=== PATIENT | female | born 1955 | race Caucasian/White ===

== ENCOUNTER 2024-02-22 08:37 | Day surgery (SDC) | payer BC, MEDICARE ==
[2024-02-15 12:02] VITALS: BMI 31.1
[~2024-02-22 08:37] MED LIST: HYDROmorphone 0.5 MG/0.5 ML SYRINGE IVP PRN; TRANEXAMIC 1,000 MG/100ML-NACL 1,000 MG in SALINE 1 100ML.BAG IV PRN; TRANEXAMIC 1,000 MG/100ML-NACL 1,000 MG in SALINE 1 100ML.BAG IVPB PRN
[2024-02-22] MEDS: oxyCODONE ER 10 MG TAB.ER.12H PO PRN (09:22)
[2024-02-22] MEDS: LACTATED RINGERS 1,000 ML IV SCH (09:22)
[2024-02-22] MEDS: ACETAMINOPHEN TAB 500 MG TAB PO PRN (09:23)
[2024-02-22] MEDS: KETOROLAC 15 MG/ML 1 ML VIAL IVP PRN (09:23)
[2024-02-22] MEDS: ONDANSETRON 4 MG/2 ML VIAL IVP PRN ×2 (09:24→16:35)
[2024-02-22] MEDS: DEXAMETHASONE SOD PHOSPHATE 10 MG/ML 1 ML VIAL IV PRN (09:24)
[2024-02-22] MEDS: FAMOTIDINE 20 MG/2 ML VIAL IVP PRN (09:24)
[2024-02-22] MEDS: DOCUSATE 100 MG CAP PO PRN (09:28)
[2024-02-22] MEDS: IV FLUID CONTINUATION 1,000 ML IV ONE (09:30)
[2024-02-22] MEDS: MIDAZOLAM 2 MG/2 ML VIAL IV PRN (09:55)
--- NOTE | 2024-02-22 10:19 | P.ANPRN ---
Procedure Note - Anesthesia - Nerve Block Performed Left Adductor Canal Single Time Out Performed: Yes Date of Procedure: 02/22/24 Procedure Start Time: 09:55 Procedure Stop Time: 10:00 Location of Patient: PreOp Indication: Acute Post-Operative Pain, Requested by Surgeon Sedation Type: Sedate with meaningful contact maintained Preparation: Sterile Prep, Sterile Dressing Position: Supine Catheter: None Needle Types: Facet Needle Gauge: 20 Ultrasound used to visualize needle placement: Yes Ultrasound used to observe medication spread: Yes Injectate: 0.5% Ropivacaine (see comment for volume) (20 ml + decadron 3 mg) Blood Aspirated: No Pain Paresthesia on Injection Noted: No Resistance on Injection: Normal Image Stored and Saved: Yes Events: Uneventful and Well Tolerated Left iPack Single Time Out Performed: Yes Date of Procedure: 02/22/24 Procedure Start Time: 10:06 Procedure Stop Time: 10:10 Location of Patient: PreOp Indication: Acute Post-Operative Pain, Requested by Surgeon Sedation Type: Sedate with meaningful contact maintained Preparation: Sterile Prep, Sterile Dressing Position: Right Lateral Catheter: None Needle Types: Facet Needle Gauge: 20 Ultrasound used to visualize needle placement: Yes Ultrasound used to observe medication spread: Yes Injectate: 0.5% Ropivacaine (see comment for volume) (10 ml + decadron 1 mg) Blood Aspirated: No Pain Paresthesia on Injection Noted: No Resistance on Injection: Normal Image Stored and Saved: Yes Events: Uneventful and Well Tolerated
[2024-02-22] MEDS ORDERED: ROPIVACAINE 5 MG/ML 30 ML VIAL ONE (11:04)
[2024-02-22] MEDS ORDERED: ROCURONIUM 10 MG/ML (5 ML VIAL) IV ONE (11:04)
[2024-02-22] MEDS ORDERED: MIDAZOLAM 2 MG/2 ML VIAL ONE (11:04)
[2024-02-22] MEDS ORDERED: TRANEXAMIC 1,000 MG/100ML-NACL PREMIX BAG ONE (11:04)
[2024-02-22] MEDS ORDERED: PROPOFOL 10 MG/ML 20 ML VIAL IV ONE (11:04)
[2024-02-22] MEDS ORDERED: DEXAMETHASONE SOD PHOSPHATE 4 MG/ML 1 ML VIAL ONE (11:04)
[2024-02-22] MEDS ORDERED: ePHEDrine 50 MG/ML 1 ML VIAL ONE (11:04)
[2024-02-22] MEDS ORDERED: LIDOCAINE 1% INJ 10MG/ML (20 ML MDV) ONE (11:04)
[2024-02-22] MEDS ORDERED: GLYCOPYRROLATE 0.2 MG/ML 2 ML VIAL ONE (11:04)
[2024-02-22] MEDS ORDERED: SUCCINYLCHOLINE CHLORIDE 200 MG/10 ML VIAL IV ONE (11:04)
[2024-02-22] MEDS ORDERED: NEOSTIGMINE 1 MG/ML 10 ML VIAL ONE (11:04)
[2024-02-22] MEDS ORDERED: HYDROmorphone (PF) 1 MG/ML ONE (11:04)
[2024-02-22] MEDS ORDERED: fentaNYL (PF) 50 MCG/ML 2 ML AMP ONE (11:04)
[2024-02-22] MEDS: LACTATED RINGERS 1,000 ML IV ONE (11:39)
[2024-02-22] MEDS: ROPIVACAINE/EPI/CLONIDINE/KET 50 ML SYRINGE MISCELLANE PRN (11:41)
--- NOTE | 2024-02-22 13:35 | P.OP ---
Date of Procedure: 02/22/24 Preoperative Diagnosis: 1. severe left knee arthritis, status post ACL reconstruction 2. 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 Former cigarette smoker Postoperative Diagnosis: Same Procedure(s) Performed: 1. Left total knee arthroplasty 2. Computer assisted musculoskeletal navigation using CT/MRI images Implants: 1. [place] [employer] CR Femur Size #3 2. [employer] [employer] [place] Tibial Base Size #2 with 12x50 stem 3. John [employer]lon CS poly Size #11 4. [place] [employer]lon all poly patella, Size #29 Anesthesia: GETA, regional Surgeon: David Washington Cashier Courtesy Booth #1: John Alvarez Estimated Blood Loss (ml): 100 IV fluids (ml): 800 Pathology: none sent Condition: stable Disposition: PACU Indications for Procedure: I met with the patient preoperatively in the office setting and discussed treatment of their symptomatic knee arthritis. They failed a long course of nonsurgical treatment and elected to proceed with an elective total knee replacement. I discussed the potential risks and complications at length and gave them ample time to ask questions. Risks discussed included: risks from anesthesia, superficial site surgical infection, acute and/or chronic periprosthetic joint infection, delayed wound healing, drainage, wound necrosis, instability, stiffness, stiffness requiring manipulation and/or revision surgery, damage to local blood vessels or nerves, aseptic loosening of the implants, extensor mechanism issues including disruption, patellar maltracking, avascular necrosis etc., continued or worsened knee pain, generalized dissatisfaction with surgical outcome, need for revision surgery, an inability to regain preinjury level of function, DVT, PE, other medical complications, and possibly loss of life or limb. The patient voiced their understanding that while these are the most common complications other less common complications are possible. They provided both their verbal and written consent to go forward with surgery. The patient also has a history of smoking. She was able to quit smoking prior to surgery. She states that she has not had a cigarette in over a month. She understands that if she resumes smoking she is at increased risk of having an infection or delayed wound healing. Operative Findings: patient had severe tricompartmental osteoarthritis. After registering the knee with the Tahir robot there was a 20 flexion contracture. Description of Procedure: The patient was identified in preoperative holding and the correct operative extremity was verified and marked with a marker. I reviewed the consent form with the patient at length. All of their questions were answered. The patient was given a block by anesthesia. They were then brought back to the operating room. They were transferred onto the operating room table where a general anesthetic, preoperative antibiotics, and tranexamic acid were administered by anesthesia. A tourniquet was applied to the proximal aspect of the operative extremity. The contralateral extremity was padded under the heel and secured to the operating room table with a nonsterile blue towel and tape. The ipsilateral arm was carefully draped across the patient's chest and secured with a pillow and foam. A post was applied over the lateral aspect of the ipsilateral thigh and a bolster was placed under the ipsilateral foot. I verified that the operative extremity was stable and the knee was flexed to 90. The operative extremity was then placed in a leg acuna, nonsterile drapes were applied, and the extremity was prepped and draped sterilely in the standard sterile fashion. Prior to starting surgery timeout was performed identifying the correct patient, operative extremity, and procedure. The leg was then elevated, exsanguinated with an Esmarch bandage, and the tourniquet was inflated. An anterior midline incision was made sharply with a scalpel. Once I had dissected deep to the superficial fascial layer medial and lateral flaps were elevated. A medial parapatellar arthrotomy was created. Upon opening the knee joint there were diffuse arthritic changes in all 3 compartments. The anterior horn of the medial meniscus were sharply released and a medial release was performed around the posterior medial corner of the knee to facilitate retractor placement. after performing the medial release the metallic interference screw in the tibia was identified. I carefully removed bone around the screw and then was able to easily remove the screw. The screw tract was debrided and bone wax was applied to prevent extravasation of cement. The fat pad was excised with electrocautery. The patella was found to be severely arthritic and a provisional cut was made with a sagittal saw to facilitate mobilization of the extensor mechanism during the procedure. Remnants of the ACL and PCL were then excised from the notch. 4 mm pins were then placed within the incision in the medial distal femur and proximal tibia. Arrays were applied to the pins and I verified they were completely tightened. The knee was then registered with the deeplocal robot and manipulations in implant position were made to balance the knee and opitmize implant position. Using the Tahir robotic saw all cuts were made in accordance with our plan. After all bony fragments had been removed the cuts were verified with the planar probe. The tibia was then subluxed forward and sized. The knee was brought into flexion and a lamina ladderman was placed to allow removal of the meniscal remnants both medially and laterally as well as posterior osteophytes. Local anesthetic was then infiltrated around the joint capsule. Trial implants were then placed within the knee. Range of motion and collateral ligament tension was then evaluated. Adjustments in implant size and position were then made accordingly. Once the knee was felt to be appropriately balanced the Tahir pins were removed. The patella was then recut, sized, and punched. A trial patellar button was then placed. With the trial components in place, the patella tracked midline. The femur was then drilled and the trial component removed. The trial tibial component was then appropriately rotated, pinned, and prepared for the keel. All trial components were then removed from the knee. The knee was thoroughly irrigated with pulsatile lavage. Cement was prepared via vacuum mixing in a bowl on the back table. I then hand pressurized cement into the femur and tibia and placed the implants beginning with the tibial base tray and poly liner, femoral component, and finally the patellar button. All extruded cement was removed including from the pin sites. Once the cement had hardened the knee was evaluated one final time with the final polyethylene liner in place. The knee had full extension and flexion and felt stable to varus and valgus stress throughout the arc of motion. The tourniquet was released and with the tourniquet down the patella tracked midline. All bleeders were controlled with electrocautery. The knee was then soaked for 3 minutes with a dilute Betadine soak. The knee was thoroughly irrigated using 3 L of sterile saline and pulsatile lavage. The extensor mechanism was then reapproximated using pop off Vicryl sutures followed by a running barbed suture. The knee was then closed in layers with a 0 strata fix for the deep fascial l maria luz, 2-0 strata fix for the superficial subcutaneous layer and Monocryl and Steri-Strips for the skin. A sterile dressing was applied. I verified that all instrument, sponge, and sharp counts were correct. The patient was then transferred off the operating room table, extubated, and brought to recovery having tolerated the procedure well. John Alvarez PA-C was required as a skilled practice assistant for patient positioning, draping, exposure, retraction, closure of wound and application of dressing PLAN: The patient can weight-bear as tolerated on the operative extremity. DVT prophylaxis with aspirin 81 mg twice a day based on preoperative risk stratification. Internal medicine for perioperative medical management. 2 doses of post-operative antibiotics. Physical therapy for gait training. Follow-up in the office in 2 weeks for wound check and x-rays of the knee including an AP and lateral.
[2024-02-22] MEDS ORDERED: MAGNESIUM HYDROXIDE 2,400 MG/30 ML CUP PO PRN (13:42)
[2024-02-22] MEDS ORDERED: NA PHOS,M-B/NA PHOS,DI-BA 133 ML ENEMA RECTAL PRN (13:42)
[2024-02-22] MEDS ORDERED: HYDROmorphone 0.5 MG/0.5 ML SYRINGE IVP PRN ×3 (13:42)
[2024-02-22] MEDS ORDERED: bisacodyL 10 MG SUPP RECTAL PRN (13:42)
[2024-02-22] MEDS ORDERED: HYDROcodone/APAP 10-325MG 1 EACH TAB PO PRN (13:42)
[2024-02-22] MEDS ORDERED: hydrOXYzine pamoate 25 MG CAP PO PRN (13:42)
[2024-02-22] MEDS ORDERED: NALOXONE 0.4 MG/ML 1 ML VIAL IV PRN (13:42)
--- NOTE | 2024-02-22 14:29 | XR ---
EXAMINATION TYPE: XR knee limited LT DATE OF EXAM: 02/22/2024 COMPARISON: None HISTORY: Postknee replacement TECHNIQUE: 2 view left knee FINDINGS: Tibial femoral components in place. Postsurgical soft tissue changes are present. No acute fractures are evident post revision. IMPRESSION: 1. No acute fractures post left knee revision and replacement [facility] Jalil Mayen, Workstation: [facility], 02/22/2024 2:27 PM
--- NOTE | 2024-02-22 17:28 | P.CONS ---
History of Present Illness - Reason for Consult Consult date: 02/22/24 Medical Management Requesting physician: aDvid Washington - History of Present Illness History of Presenting Illness: Patient is a very pleasant 68-year-old female with a past medical history of hypertension, hyperlipidemia, and arthritis. She is currently admitted under orthopedic surgery team status post elective left total knee arthroplasty. We w lizet consulted for medical management throughout hospitalization. Patient seen and fully evaluated upon arrival to room 484. She was resting comfortably complaining of some mild postoperative nausea and feeling sleepy. She is also very concerned that she missed her chlorthalidone this morning and requesting her home medication at this time. Patient otherwise denies any complaints at this time. She reports minimal postoperative pain rating 2 out of 10 at this time. Patient denies having any headache, lightheadedness, dizziness, chest pain, palpitations, shortness of breath, or any other co mplaints at this time. Review of systems: Pertinent positives and negatives as discussed in HPI, a complete review of systems was performed and all other systems are negative. Physical exam: Vital signs reviewed and stable. General: Nontoxic, no distress and appears stated age. Derm: Skin warm and dry, normal coloration for ethnicity. Head: Atraumatic, normocephalic and symmetric. Eyes: EOM's intact, no lid lag, and anicteric sclera Mouth: no lip lesions, mucus membranes moist Cardiovascular: regular rate and rhythm with normal S1S2, no murmur, positive posterior tibial pulses bilaterally, and cap refill < 2 seconds. Lungs: Respirations even, regular, and unlabored on room air. Lungs CTA bilater ally, no rhonchi, no rales, no wheezing, and no accessory muscle usage. Abdominal: soft, nontender to palpation, no guarding, no appreciable organomegaly Ext: Movement and sensation intact. No gross muscle atrophy, no edema, no contractures. Neuro: Speech clear, face symmetrical and CN II-XII grossly intact with no noted focal neuro deficits Psych: Alert and oriented to person, place, time, and situation. Appropriate and pleasant affect. Assessment and Plan of Care: Status post left total knee arthroplasty Management per primary admitting orthopedic surgery team including DVT prophylaxis, pain management, wound/dressing management, weightbearing, and PT/OT. Currently DVT prophylaxis with aspirin 81 mg twice daily. Postoperative nausea Patient was given Zofran and continues to report postoperative nausea. Will place order for Compazine 10 mg IVP every 6 hours for intractable nausea. Hypertension Blood pressure currently stable at 135/63 with heart rate of 91. Patient to resume chlorthalidone 25 mg daily. Data and imaging reviewed: Reviewed operative report. Vital signs reviewed and stable with blood pressure 135/63, heart rate 91, respiratory rate 18, and SpO2 of 96% on 3 L. Preoperative EKG reviewed showing normal sinus rhythm at 68 bpm with no noted T wave or ST abnormality showing no signs of acute ischemia upon personal review and interpretation. Thank you for allowing us to participate in the care of this pleasant patient. Do not hesitate to contact us with questions. Someone can be reached from the [facility][Note 3] hospitalist group all hours of the day at [phone] or via [employer]. Patient was seen independently by Nurse Practitioner. This document was prepared using NOTIK dictation software. Please allow for errors in ecological technical officer while rare they do occur. I reviewed the documentation as provided by the MACIEL above, who is the original author of this note. I agree with the documented assessment and plan, with the following changes: none Past Medical History Past Medical History: Hyperlipidemia, Hypertension, Osteoarthritis (OA) Additional Past Medical History / Comment(s): Varicose veins. History of Any Multi-Drug Resistant Organisms: None Reported Past Surgical History: Orthopedic Surgery, Tonsillectomy Additional Past Surgical History / Comment(s): Reconstructive left knee surgery, ovary removed(cannot recall which one). Past Anesthesia/Blood Transfusion Reactions: No Reported Reaction Smoking Status: Former smoker - Past Family History Mother Family Medical History: Cancer Additional Family Medical History / Comment(s): Multiple myeloma. Medications and Allergies Home Medications Medication Instructions Recorded Confirmed Type Chlorthalidone 25 mg PO DAILY 02/15/24 02/22/24 History Ergocalciferol [Vitamin D2 (1250 1,250 mcg PO SA 02/15/24 02/22/24 History Mcg = 28096 Iu)] Niacin 500 mg PO DAILY 02/15/24 02/22/24 History Allergies Allergy/AdvReac Type Severity Reaction Status Date / Time povidone-iodine Allergy Rash/Hives Verified 02/22/24 08:59 [From Betadine] Physical Exam Osteopathic Statement: *. No significant issues noted on an osteopathic structural exam other than those noted in the History and Physical/Consult. Vitals: Vital Signs Temp Pulse Resp BP Pulse Ox 02/22/24 16:00 91 18 135/63 96 02/22/24 15:45 88 18 137/63 96 02/22/24 15:31 92 18 141/59 94 L 02/22/24 15:15 90 18 156/71 95 02/22/24 15:00 96 18 154/71 95 02/22/24 14:45 91 18 156/70 95 02/22/24 14:30 91 18 130/61 95 02/22/24 14:15 91 18 176/63 95 02/22/24 14:00 96 18 164/76 95 02/22/24 13:45 97.7 F 111 H 18 181/88 95 02/22/24 10:10 64 16 102/53 97 02/22/24 09:00 97.1 F L 80 18 142/82 97 Intake and Output 02/22/24 02/22/24 02/22/24 06:59 14:59 22:59 Intake Total 1850 Output Total 100 Balance 1750 Intake: IV 1850 Output: Estimated Blood Loss 100 Other: Weight 85.6 kg Results CBC & Chem 7: 02/22/24 09:19
[2024-02-22] MEDS ORDERED: PROCHLORPERAZINE INJ 10 MG/2 ML VIAL IVP PRN (17:41)
[2024-02-22] MEDS: CHLORTHALIDONE 25 MG TAB PO SCH (18:46)
[2024-02-22] MEDS: SODIUM CHLORIDE 0.9% 1,000 ML IV SCH (18:51)
[2024-02-22] MEDS: SENNOSIDES-DOCUSATE SODIUM 1 EACH TAB PO SCH (21:56)
[2024-02-22] MEDS: ASPIRIN 81 MG PO SCH (21:56)
[2024-02-23 08:33] VITALS: BP 104/61; PULSE 94; RESP 17; TEMP 98.3
--- NOTE | 2024-02-23 08:44 | P.DS ---
Providers Date of admission: 02/22/2024 Attending physician: David Washington Consults: 02/22/24 13:42 Consult Physician Routine Consulting Provider: Leydi Griggs Consult Reason/Comments: post op Left TKA medical management Do you want consulting provider notified?: Yes Primary care physician: [facility] Course: the patient is a very pleasant 68-year-old female who was admitted under my care yesterday and had a total knee replacement. Following an uncomplicated surgery she was transferred to the orthopedic floor. She received 2 doses of postoperative antibiotics. She was transitioned from IV to oral pain medication. She was seen by internal medicine. On postoperative day #1 she was evaluated by myself. Her knee looked good. Her dressing was intact. There is minimal swelling. She was able to perform a straight leg raise. Femoral nerve function was intact. She was able to actively plantarflex and dorsiflex her ankle and her foot. She worked with physical therapy. Burt new did well and was cleared for discharge home. Plan - Discharge Summary Discharge Rx Participant: No New Discharge Prescriptions: New Aspirin 81 mg PO BID #60 tab Docusate [Colace] 100 mg PO BID #60 capsule HYDROcodone/APAP 5-325MG [[place] 5-325] 1 - 2 tab PO Q6HR PRN #56 tab PRN Reason: Pain Ondansetron [Zofran] 4 mg PO Q8HR PRN #20 tab PRN Reason: Nausea Diclofenac Sodium [Voltaren] 75 mg PO BID #60 tab Omeprazole [PriLOSEC] 40 mg PO DAILY #30 cap No Action Ergocalciferol [Vitamin D2 (1250 Mcg = 60723 Iu)] 1,250 mcg PO SA Niacin 500 mg PO DAILY Chlorthalidone 25 mg PO DAILY Discharge Medication List Chlorthalidone 25 mg PO DAILY 02/15/24 [History] Ergocalciferol [Vitamin D2 (1250 Mcg = 28385 Iu)] 1,250 mcg PO SA 02/15/24 [History] Niacin 500 mg PO DAILY 02/15/24 [History] Aspirin 81 mg PO BID #60 tab 02/23/24 [Rx] Diclofenac Sodium [Voltaren] 75 mg PO BID #60 tab 02/23/24 [Rx] Docusate [Colace] 100 mg PO BID #60 capsule 02/23/24 [Rx] HYDROcodone/APAP 5-325MG [[place] 5-325] 1 - 2 tab PO Q6HR PRN #56 tab 02/23/24 [Rx] Omeprazole [PriLOSEC] 40 mg PO DAILY #30 cap 02/23/24 [Rx] Ondansetron [Zofran] 4 mg PO Q8HR PRN #20 tab 02/23/24 [Rx] Follow up Appointment(s)/Referral(s): David Washington MD [Medical Doctor] - 2 Weeks Activity/Diet/Wound Care/Special Instructions: 1. Weight-bear as tolerated on your operative extremity unless instructed otherwise. Use a walker or other assistive device to ambulate. 2. Leave surgical dressing in place. If your dressing becomes saturated with blood, there is drainage, or the dressing becomes loose please contact the office. 3. It is okay to shower with your surgical dressing, but do not submerge in water (no hot tubs, bath's, swimming etc.) 4. Take your blood clot prevention medication as prescribed (aspirin, Eliquis, Xarelto, and Plavix are commonly prescribed medications for blood clot prevention) 5. While taking [place] or Percocet for pain take a stool softener (Ex: Colace) and drink lots of water. 6. Keep all follow-up appointments as scheduled. You will usually be seen in 1-2 weeks following surgery. 7. Please contact the office with any questions or concerns [phone] Discharge Disposition: HOME WITH HOME HEALTH SERVICES
[2024-02-23] MEDS: ERGOCALCIFEROL 1,250 MCG (50,000 IU) CAPSULE PO SCH (08:47)
[2024-02-23] MEDS: NIACIN TR 500 MG CAPLET PO SCH (08:47)
[2024-02-23] MEDS: HYDROcodone/APAP 5-325MG 1 EACH TAB PO PRN (08:47)
[2024-02-23 09:20] LABS: Basophils # (A) 0.02 X 10*3/uL (0.00-0.10); Basophils % (A) 0.1 %; Eosinophils # (A) 0.01 X 10*3/uL (0.04-0.35); Eosinophils % (A) 0.1 %; HCT 41.2 % (37.2-46.3); HGB 13.3 g/dL (12.0-15.0); Lymphocytes # (A) 1.27 X 10*3/uL (0.90-5.00); Lymphocytes % (A) 6.6 %; MCH 29.9 pg (27.0-32.0); MCHC 32.3 g/dL (32.0-37.0); MCV 92.6 FL (80.0-97.0); Mean Platelet Volume 9.7 FL (9.5-12.2); Monocytes # (A) 0.99 X 10*3/uL (0.20-1.00); Monocytes % (A) 5.2 %; NRBC Per 100 WBC 0 X 10*3/uL (0.00-0.01); Neutrophils # (A) 16.82 X 10*3/uL (1.80-7.70); Neutrophils % (A) 87.7 %; Platelet Count 364 X 10*3/uL (140-440); RBC 4.45 X 10*6/uL (4.10-5.20); RDW 14.6 % (11.5-14.5); WBC 19.17 X 10*3/uL (4.50-10.00)
[2024-02-23 09:44] LABS: BUN/Creat Ratio 26.62 Ratio (12.00-20.00); Blood Urea Nitrogen 21.3 mg/dL (9.0-27.0); Calcium 8.2 mg/dL (8.7-10.3); Carbon Dioxide 26.7 mmol/L (21.6-31.8); Chloride 106 mmol/L (96-109); Glucose 127 mg/dL (70-110); Magnesium 1.8 mg/dL (1.5-2.4); Potassium 3.9 mmol/L (3.5-5.5); Sodium 142 mmol/L (135-145)
--- NOTE | 2024-02-23 14:46 | P.PN ---
Subjective Progress Note Date: 02/23/24 Hospital course: Patient is a very pleasant 68-year-old female with a past medical history of hypertension, hyperlipidemia, and arthritis. She is currently admitted under orthopedic surgery team status post elective left total knee arthroplasty. We were consulted for medical management throughout hospitalization. Physical exam: Patient was seen and fully evaluated at bedside. She was sitting up in the chair and reports feeling ready to go home. Patient working with physical therapy at this time and just completed stairs and reportedly did well. Patient reports moderate postoperative pain but states expected and no worse than the pain she felt prior to surgery. She denies having any postoperative nausea or vomiting, chest pain, palpitations, shortness of breath, or any other complaints at this time. Vital signs reviewed and stable. General: Nontoxic, no distress and appears stated age. Derm: Skin warm and dry, normal coloration for ethnicity. Head: Atraumatic, normocephalic and symmetric. Eyes: EOM's intact, no lid lag, and anicteric sclera Mouth: no lip lesions, mucus membranes moist Cardiovascular: regular rate and rhythm with normal S1S2, no murmur, positive posterior tibial pulses bilaterally, and cap refill < 2 seconds. Lungs: Respirations even, regular, and unlabored on room air. Lungs CTA bilaterally, no rhonchi, no rales, no wheezing, and no accessory muscle usage. Abdominal: soft, nontender to palpation, no guarding, no appreciable organomegaly Ext: Movement and sensation intact. No gross muscle atrophy, no edema, no contractures. Neuro: Speech clear, face symmetrical and CN II-XII grossly intact with no noted focal neuro deficits Psych: Alert and oriented to person, place, time, and situation. Appropriate and pleasant affect. Assessment and Plan of Care: Status post left total knee arthroplasty Management per primary admitting orthopedic surgery team including DVT prophylaxis, pain management, wound/dressing management, weightbearing, and PT/OT. Currently DVT prophylaxis with aspirin 81 mg twice daily. Leukocytosis Believed to be reactive secondary to surgical procedure. No signs of infection. Postoperative nausea Resolved. Hypertension Blood pressure currently stable at 104/61 and heart rate 94 with heart rate of 91. Patient to continue chlorthalidone 25 mg daily. Data and imaging reviewed: Vital signs reviewed and stable with blood pressure 104/61, heart rate 94, respiratory rate 17, temp 98.3 F, and SpO2 of 93% on room air. Postoperative labs completed. CBC showing leukocytosis with WBC count of 19.17 and a stable hemoglobin of 13.3. BMP was unremarkable. Glucose 127. Magnesium 1.8. Patient is medically optimized and cleared from medical perspective for discharge once cleared by primary admitting orthopedic surgery team. Thank you for allowing us to participate in the care of this pleasant patient. Do not hesitate to contact us with questions. Someone can be reached from the [facility] hospitalist group all hours of the day at [phone] or via [employer]. Patient was seen independently by Nurse Practitioner. This document was prepared using Lapio dictation software. Please allow for errors in ux designer while rare they do occur. I reviewed the documentation as provided by the MACIEL above, who is the original author of this note. I agree with the documented assessment and plan, with the following changes: none Objective - Vital Signs Vital signs: Vital Signs Temp 97.5 F L 02/23/24 00:54 Pulse 87 02/23/24 00:54 Resp 18 02/23/24 00:54 BP 125/68 02/23/24 00:54 Pulse Ox 94 L 02/23/24 00:54 FiO2 Intake & Output 02/22/24 02/23/24 02/23/24 18:59 06:59 18:59 Intake Total 1850 Output Total 100 Balance 1750 Weight 85.6 kg Intake: IV 1850 Output: Estimated Blood Loss 100 Other: Voiding Method Toilet # Voids 0 3 - Labs CBC & Chem 7: 02/23/24 05:17 02/23/24 05:17
== END 2024-02-23 10:20 | disposition home health service (06) ==
LOC: OR 08:37 → 4SSUR 13:36 → OR 02-23 10:20
PROVIDERS: ATTEND Orthopaedic Surgery
DX: M17.12 Unilateral primary osteoarthritis, left knee
CPT/HCPCS: 0055T; 27447; 64447; 64999; 80048; 83735; 84132; 85025